=== PATIENT | male | born 1985 ===

== ENCOUNTER 2016-12-31 13:51 | Observation (INO) | payer BC, OTHER ==
--- NOTE | 2016-12-31 14:45 | C.PDOC ---
History Of Present Illness 31 y/o male presents to ED with complaints of exacerbating chronic dental pain for 3 days with associated intermittent left lower molar pain for several months but worse for the past 3 days. Patient also complaints of constant and localized left sided chest pain since 0500. Patient states tooth cracked seven months ago and tried to see Dentist today but was advised to make an appointment. Patient reports taking 26 Tylenol extra strength pills in 36 hours. Patient states he took "4 pills extra strength every 2 hours" and last dose was at 0200. Patient also reports taking Advil pm and Excedrin pm yesterday with limited relief. ACUTE EXAC CHRONIC DENTAL PAIN X 3 DAYS. W INTERMIT L LOWER MOLAR PAIN X SEV MONTHS BUT WORSE THAN USUAL X 3 DAYS. NO FEVER. PS CRACKED TOOTH SEV MONTHS AGO. TRIED TO SEE DENTIST TODAY BUT WAS ADVISED NEED AN APPOINTMENT. TOOK 26 TYLENOL EXTRA STRENGTH PILLS IN 36 HOURS. "4 PILLS EXTRA STRENGTH EVERY 2 HOURS". LAST DOSE @ 0200. TOOK ADVIL PM AND EXCEDRIN PM YEST W LIMITED RELIEF. ALSO CO L SIDED CHEST PAIN SINCE 0500. LOCALIZED CONSTANT EXAM MILD DIST ANICTERIC MOUTH +CRACKED TOOTH L LOWER 1 MOLAR W LOCAL TEND. NO ABSCESS. NO FACIAL SWELL Time Seen by Provider: 12/31/16 14:22 Chief Complaint (Nursing): Dental Pain History Per: Patient History/Exam Limitations: no limitations Onset/Duration Of Symptoms: Days Current Symptoms Are (Timing): Still Present Past Medical History Reviewed: Historical Data, Nursing Documentation, Vital Signs Vital Signs: Last Vital Signs Temp 99.2 F 12/31/16 15:48 Pulse 90 12/31/16 15:48 Resp 17 12/31/16 15:48 BP 129/91 H 12/31/16 15:48 Pulse Ox 99 12/31/16 15:56 - [facility] Procedures APPLICATION OF SPLINT (04/26/14) CLOSURE SKIN & SUBCUTANEOUS NEC (01/04/15) TETANUS TOXOID ADMINIST (01/04/15) Family History: States: No Known Family Hx - Social History Hx Tobacco Use: Yes Hx Alcohol Use: No Hx Substance Use: No - Immunization History Hx Tetanus Toxoid Vaccination: Yes (not up to date) Review Of Systems Except As Marked, All Systems Reviewed And Found Negative. Constitutional: Negative for: Fever, Chills Eyes: Negative for: Vision Change Cardiovascular: Positive for: Chest Pain Respiratory: Negative for: Cough, Shortness of Breath Gastrointestinal: Negative for: Nausea, Vomiting Skin: Negative for: Rash Physical Exam - Physical Exam Appears: Non-toxic, Other (Mild distress) Skin: Warm, Dry, No Rash, Other (Anicteric) Head: Atraumatic, Normacephalic Eye(s): bilateral: Normal Inspection Oral Mucosa: Moist Lips: Normal Appearing Teeth: No Loose, Other (cracked tooth to left lower 1st molar w/local tenderness. No abscess) Gingiva: Normal Appearing, No Swelling Throat: Normal, No Erythema Neck: Normal ROM, Supple Neurological/Psych: Oriented x3, Normal Speech, Normal Cognition ED Course And Treatment - Laboratory Results Result Diagrams: 12/31/16 15:12 12/31/16 15:12 ECG: Interpreted By Me ECG Rhythm: Sinus Rhythm ECG Interpretation: Normal Rate From EC (bpm) O2 Sat by Pulse Oximetry: 99 (RA) Pulse Ox Interpretation: Normal - Radiology CXR: Interpreted by Me CXR Interpretation: Yes: No Acute Disease Progress - Re-Evaluation Re-evaluation Note: 12/31/16 14:52 D/W [place] [facility]: RECOMMENDS ACETADOTE, LABS AND ADMISSION. 12/31/16 14:56 D/W DR Eloy NORRIS MED SLAB LIFTING ENGINEER WILL ADMIT 12/31/16 15:02 D/W DR BURNS C/F ICU: AWARE OF ER FINDINGS, REQUESTS CALLBACK W LABS FOR DISPO 12/31/16 16:26 RESULTS D/W DR BURNS, PT CLEARED FOR REG FLOOR ADMISSION EXAM [facility] - Data Reviewed Data Reviewed: Lab, Diagnostic imaging, EKG, Other ([facility]) - Critical Care Citical Care: Excluding Proc Time Critical Care Time: 90 minutes - Continuity of Care Discussed patient case with:: Patient, On-call PMD-pt unassigned Discussed pt. case with retail consultant/specialty: Pulmonary/Crit. Care, Other ([place] [facility]) Disposition Counseled Patient/Family Regarding: Studies Performed, Diagnosis - Disposition Disposition: HOSPITALIZED Disposition Time: 15:02 Condition: STABLE Forms: [facility] (Arabic) - POA Present On Arrival: None - Clinical Impression Clinical Impression: Dentalgia, Unintentional Tylenol overdose - PA / [employer] / Resident Statement MD/DO has examined the patient and agrees with the treatment plan. - Scribe Statement The provider has reviewed the documentation as recorded by the Jinnyibe Oleg Bauer All medical record entries made by the Jinnyibe were at my direction and personally dictated by me. I have reviewed the chart and agree that the record accurately reflects my personal performance of the history, physical exam, medical decision making, and the department course for this patient. I have also personally directed, reviewed, and agree with the discharge instructions and disposition. Decision To Admit - Pt Status Changed To: Hospital Disposition Of: Observation - . Bed Request Type: Regular Admitting Physician: Chad Norris Patient Diagnosis: Dentalgia, Unintentional Tylenol overdose
[2016-12-31] MEDS ORDERED: Acetylcysteine 10,890 MG in Dextrose 5% In Water 200 ML IVPB ONE ×2 (14:58→16:00)
[2016-12-31 15:18] LABS: BASO % 0.2 % (0.0-2.0); EOS # 0.1 K/uL (0.0-0.7); EOS % 0.7 % (0.0-4.0); HEMATOCRIT 48.2 % (35.0-51.0); LYMPH # 1.4 K/uL (1.0-4.3); LYMPH % 10.4 % (20.0-40.0); MEAN CELL VOLUME 86.1 fL (80.0-94.0); MEAN CORPUSCULAR HEMOGLOBIN 29.4 pg (27.0-31.0); MEAN CORPUSCULAR HGB CONC 34.2 g/dL (33.0-37.0); MEAN PLATELET VOLUME 8.4 fL (7.2-11.7); MONO # 1.1 K/uL (0.0-0.8); MONO % 8.1 % (0.0-10.0); RED CELL DISTRIBUTION WIDTH 12.7 % (11.5-14.5); WHITE BLOOD COUNT 13.8 K/uL (4.8-10.8)
[2016-12-31 15:25] LABS: CHLORIDE 100 mmol/L (98-107); POTASSIUM 4.1 mmol/L (3.6-5.2); SODIUM 141 mmol/L (132-148)
[2016-12-31 15:28] LABS: ALB/GLOB RATIO 1.2 (1.0-2.1); ALKALINE PHOSPHATASE 73 U/L (38-126); ALT/SGPT 43 U/L (21-72); AST/SGOT 28 U/L (17-59); BILIRUBIN,DIRECT 0.6 mg/dL (0.0-0.4); BILIRUBIN,TOTAL 0.6 mg/dL (0.2-1.3); BLOOD UREA NITROGEN 10 mg/dL (9-20); CALCIUM 9.3 mg/dl (8.6-10.4); CARBON DIOXIDE 25 mmol/L (22-30); GFR AFRICAN-AMERICAN > 60; GLUCOSE,RANDOM 143 mg/dL (75-110); TOTAL PROTEIN 7.9 g/dL (6.3-8.3)
--- NOTE | 2016-12-31 15:44 | RAD ---
HISTORY: CHEST PAIN; OVERDOSE COMPARISON: No prior. TECHNIQUE: Chest PA and lateral FINDINGS: LUNGS: No active pulmonary disease. PLEURA: No significant pleural effusion identified. No pneumothorax apparent. CARDIOVASCULAR: Apparent right-sided aortic arch. OSSEOUS STRUCTURES: No significant abnormalities. VISUALIZED UPPER ABDOMEN: The gastric air bubble appears be at beneath the left hemidiaphragm OTHER FINDINGS: Note made of a radiopaque density overlying the anterior chest wall in lateral projection. IMPRESSION: No acute infiltrates. Right-sided aortic arch.
[2016-12-31] MEDS ORDERED: Acetylcysteine 3,630 MG in Dextrose 5% In Water 500 ML IVPB ONE (17:29)
--- NOTE | 2016-12-31 17:43 | CP.CCUPN ---
CCU Subjective - Physician Review Events Since Last Encounter (Free Text): 12/31/16 17:43 ICU evaluation called because of the Tylenol overdose. But after the evaluation Tylenol level was normal. 31-year-old male came to the emergency room with pain over the left side of the chest, as well as left upper quadrant pain. 3 days patient was taking medications of Tylenol more frequently than usual, for his toothache. Patient did not have any symptoms of nausea, vomiting. But the currently complaining of some headache, and a left-sided chest pain, palpitation, and the left upper quadrant pain. He is not in any distress. He is otherwise comfortable. He has no other major active symptoms Past medical history: None No known drug allergy Patient is a smoker, no alcohol or substance abuse. Currently working On examination: Vital signs stable. Chest good air entry bilaterally. Low-grade fever noted, blood pressure is 130/90, saturation 99% chest good air entry regular heart sound Abdominal tenderness noted over the left upper quadrant area. No cough. Labs reviewed Mild elevation of the WBC noted Tylenol level is normal. Assessment and recommendation: 31-year-old male currently clinically stable. He does not need to be in the intensive care unit. Patient can be admitted to the medical floor, and they will be managed by the medical team. If there is any changing in condition please call ICU. Further orders and management as per PMD. CCU Objective - Vital Signs / Intake & Output Vital Signs (Last 4 hours): Vital Signs Pulse Ox 12/31/16 16:27 99 - Medications Active Medications: Active Medications Generic Name Dose Route Start Last Admin Trade Name Freq PRN Reason Stop Dose Admin Acetylcysteine 3,630 mg/ 518.15 mls @ 125 mls/hr 12/31/16 17:29 Dextrose IVPB 12/31/16 21:37 ONCE ONE
--- NOTE | 2016-12-31 18:52 | CP.PCM.HP ---
Past Patient History - Past Social History Smoking Status: Light Smoker < 10 Cigarettes Daily - PSYCHIATRIC Hx Substance Use: No - SURGICAL HISTORY Other/Comment: hernia and esophagial surgery as a baby - ANESTHESIA Hx Anesthesia: No Hx Anesthesia Reactions: No Hx Malignant Hyperthermia: No Meds Allergies/Adverse Reactions: Allergies Allergy/AdvReac Type Severity Reaction Status Date / Time acetaminophen [From Tylenol] Allergy RASH Verified 12/31/16 14:23 ibuprofen [From Motrin] Allergy RASH Verified 12/31/16 14:23 Physical Exam - Constitutional Appears: Well - Head Exam Head Exam: ATRAUMATIC, NORMAL INSPECTION, NORMOCEPHALIC - Eye Exam Eye Exam: EOMI, Normal appearance, PERRL Pupil Exam: NORMAL ACCOMODATION, PERRL - ENT Exam ENT Exam: Mucous Membranes Moist, Normal Exam - Neck Exam Neck exam: Positive for: Normal Inspection - Respiratory Exam Respiratory Exam: Decreased Breath Sounds - Cardiovascular Exam Cardiovascular Exam: REGULAR RHYTHM, +S1, +S2 - GI/Abdominal Exam GI & Abdominal Exam: Diminished Bowel Sounds, Soft - Rectal Exam Rectal Exam: Deferred Results - Vital Signs Recent Vital Signs: Last Vital Signs Temp 99 F 12/31/16 17:55 Pulse 89 12/31/16 17:55 Resp 16 12/31/16 17:55 BP 137/84 12/31/16 17:55 Pulse Ox 98 12/31/16 17:55 - Labs Result Diagrams: 12/31/16 15:12 12/31/16 15:12
[2016-12-31] MEDS ORDERED: HYDROmorphone 1 mg/ml ISec IVP PRN (20:31)
[2016-12-31] MEDS ORDERED: Acetylcysteine 10,890 MG in Dextrose 5% In Water 200 ML IVPB STA (23:16)
[2016-12-31] MEDS ORDERED: Acetylcysteine 7,260 MG in Dextrose 5% In Water 1,000 ML IVPB STA (23:25)
[2017-01-01] MEDS: HYDROmorphone 1 mg/ml ISec IVP PRN ×3 (04:40→13:45)
--- NOTE | 2017-01-01 07:24 | CP.PCM.PN ---
Subjective - Date & Time of Evaluation Date of Evaluation: 01/01/17 Time of Evaluation: 10:22 - Subjective Subjective: PGY 2 Medicine Note- Dr. Chacon's service CC: dental pain/ chest pain HPI: Pt with no PMHx presents with complaints of dental pain as well as chest pain. Pt seen and examined in no acute distress. Patient states that he cracked one of his molars several months back. He began experiencing excruciating pain on Saturday. Patient then took several pills of Tylenol progressively over the day for relief but states that his pain did not resolve. Patient is unclear of the exact number of pills. Patient states that he used to have an allergic reaction to Tylenol and ibuprofen (as a child) resulting in a rash, and thus he never took either medication for years. On Saturday however, he just wanted something that would relieve his pain. He admits to taking one Tylenol at first , without relief. Afterwards, he took several pills continuously without reading the instructions. Patient states that he is literate. He just did not read the bottle to confirm dosing because he was in such great pain. Patient admits to a intermittent and achy chest pain. The pain is relieved by pushing in the left axillary region. He denies radiation at this time. Patient states that he also had headaches as well which have been intermittent in nature. He denies nausea, vomiting, diarrhea, paresthesias , constipation, suicidal ideations, hallucinations, feelings of anxiety or depression at this time. PMHx- none PSHx- Surgery when he was born. It is unclear of the type of surgery Meds- denies Fam Hx- Admits to mild stroke with grandmother, Uncle developed kidney disease secondarily to longstanding uncontrolled HTN Allergies- Kiwi results in anaphylaxis; Acetaminophen and Ibuprofen used to result in hives as a child. He states that he did not break out into hives when he took the acetaminophen a few days ago. Social Hx- Patient admits to smoking cigarettes He smokes 1 pack every 3 days . He has been smoking for approx 16 years. He admits to marijuana use in the past. He admits to social alcohol use but not recently. ICU eval 12/31- Patient was stable at the time and there was no indication for him to need critical care monitoring Objective - Vital Signs/Intake and Output Vital Signs (last 24 hours): Temp Pulse Resp BP Pulse Ox 98.7 F 87 16 130/81 99 12/31/16 23:30 12/31/16 23:30 12/31/16 23:30 12/31/16 23:30 12/31/16 23:30 Intake and Output: 01/01/17 01/01/17 06:59 18:59 Intake Total 1800 Balance 1800 - Medications Medications: Current Medications Hydromorphone HCl (Dilaudid) 1 mg IVP Q4H PRN PRN Reason: Pain, severe (8-10) Last Admin: 01/01/17 04:40 Dose: 1 mg Acetylcysteine 7,260 mg/ (Dextrose) 1,000 mls @ 62 mls/hr IVPB STAT STA Stop: 01/01/17 15:32 Last Admin: 01/01/17 00:30 Dose: 62 mls/hr Pantoprazole Sodium (Protonix Ec Tab) 40 mg PO DAILY FRANCES Penicillin V Potassium (Penicillin Vk Tab) 500 mg PO Q6 FRANCES Last Admin: 01/01/17 05:30 Dose: 500 mg Pneumococcal Polyvalent Vaccine (Pneumovax 23 Vaccine) 0.5 ml IM .ONCE ONE Stop: 01/01/17 10:01 - Labs Labs: PT 11.7 SECONDS (9.7-12.2) 12/31/16 15:12 INR 1.0 12/31/16 15:12 APTT 33 SECONDS (21-34) 12/31/16 15:12 - Constitutional Appears: Non-toxic, No Acute Distress - Head Exam Head Exam: ATRAUMATIC, NORMAL INSPECTION, NORMOCEPHALIC - Eye Exam Eye Exam: EOMI, Normal appearance, PERRL - ENT Exam ENT Exam: Mucous Membranes Moist Additional comments: Dentition- cracked left molar - Neck Exam Neck Exam: Full ROM - Respiratory Exam Respiratory Exam: NORMAL BREATHING PATTERN. absent: Wheezes - Cardiovascular Exam Cardiovascular Exam: +S1, +S2 - GI/Abdominal Exam GI & Abdominal Exam: Soft, Normal Bowel Sounds - Extremities Exam Extremities Exam: Full ROM - Neurological Exam Neurological Exam: Alert, Awake, Oriented x3 - Psychiatric Exam Psychiatric exam: Normal Affect, Normal Mood - Skin Skin Exam: Dry, Normal Color, Warm Assessment and Plan (1) Chest pain Assessment & Plan: No prior known cardiac history Initial EKG NSR with peaked T waves F/U EKG NSR Initial troponin negative Consult to Dr. Doyle Air Tank Assembler- F/U Cont to monitor Status: Acute (2) Dentalgia Assessment & Plan: Dilaudid 1 mg Q4 PRN switched to Morphine 1 mg Q4 PRN Cont to monitor May benefit from ice pack as well. Will speak with case management regarding any dental assistance programs Status: Acute (3) Unintentional Tylenol overdose Assessment & Plan: Initial Tylenol level less than 10 Patient responsive, awake, alert, oriented Patient counseled on reading drug label instructions before using in the future Status: Acute (4) Prophylactic measure Assessment & Plan: SCDs Ambulates Protonix 40 mg PO daily Discussed with attending. All management per Dr. Chacon Status: Acute
[2017-01-01 08:40] VITALS: RESP 20
[2017-01-01] MEDS: Pantoprazole 40 mg EC Tab PO SCH (09:22)
[2017-01-01 09:42] LABS: HEMATOCRIT 45.6 % (35.0-51.0); MEAN CELL VOLUME 84.4 fL (80.0-94.0); MEAN CORPUSCULAR HEMOGLOBIN 29.5 pg (27.0-31.0); MEAN CORPUSCULAR HGB CONC 34.9 g/dL (33.0-37.0); MEAN PLATELET VOLUME 8.2 fL (7.2-11.7); RED CELL DISTRIBUTION WIDTH 12.5 % (11.5-14.5); WHITE BLOOD COUNT 8.8 K/uL (4.8-10.8)
[2017-01-01 09:48] LABS: INR 1.2
[2017-01-01 09:50] LABS: CHLORIDE 98 mmol/L (98-107)
[2017-01-01 09:51] LABS: POTASSIUM 3.8 mmol/L (3.6-5.2); SODIUM 139 mmol/L (132-148)
[2017-01-01 09:53] LABS: ALB/GLOB RATIO 1.1 (1.0-2.1); AST/SGOT 27 U/L (17-59); BILIRUBIN,DIRECT 0.5 mg/dL (0.0-0.4); BILIRUBIN,TOTAL 0.7 mg/dL (0.2-1.3); BLOOD UREA NITROGEN 8 mg/dL (9-20); CARBON DIOXIDE 29 mmol/L (22-30); GFR AFRICAN-AMERICAN > 60; TOTAL PROTEIN 7.1 g/dL (6.3-8.3)
[2017-01-01 09:54] LABS: ALKALINE PHOSPHATASE 58 U/L (38-126); ALT/SGPT 44 U/L (21-72); GLUCOSE,RANDOM 108 mg/dL (75-110)
[2017-01-01] MEDS ORDERED: Pneumococcal 23-Valent Vaccine IM ONE (10:00)
--- NOTE | 2017-01-01 15:47 | CP.PCM.PN ---
Subjective - Date & Time of Evaluation Date of Evaluation: 01/01/17 Time of Evaluation: 09:40 - Subjective Subjective: clinically same Objective - Vital Signs/Intake and Output Vital Signs (last 24 hours): Temp Pulse Resp BP Pulse Ox 98.6 F 87 20 113/78 97 01/01/17 08:38 01/01/17 08:38 01/01/17 08:38 01/01/17 08:38 01/01/17 08:38 Intake and Output: 01/01/17 01/01/17 06:59 18:59 Intake Total 1800 976 Balance 1800 976 - Medications Medications: Current Medications Morphine Sulfate (Morphine) 1 mg IV Q4 PRN PRN Reason: Pain, moderate (4-7) Pantoprazole Sodium (Protonix Ec Tab) 40 mg PO DAILY [facility] Last Admin: 01/01/17 09:22 Dose: 40 mg Penicillin V Potassium (Pen-Vee K) 500 mg PO Q6 [facility] Last Admin: 01/01/17 12:42 Dose: 500 mg - Labs Labs: 01/01/17 09:38 01/01/17 09:38 PT 13.9 SECONDS (9.7-12.2) H 01/01/17 09:38 INR 1.2 01/01/17 09:38 APTT 33 SECONDS (21-34) 12/31/16 15:12 - Constitutional Appears: Well - Head Exam Head Exam: ATRAUMATIC, NORMAL INSPECTION, NORMOCEPHALIC - Eye Exam Eye Exam: EOMI, Normal appearance, PERRL Pupil Exam: NORMAL ACCOMODATION, PERRL - ENT Exam ENT Exam: Mucous Membranes Moist, Normal Exam - Neck Exam Neck Exam: Full ROM, Normal Inspection. absent: Lymphadenopathy - Respiratory Exam Respiratory Exam: Decreased Breath Sounds - Cardiovascular Exam Cardiovascular Exam: REGULAR RHYTHM, +S1, +S2 - GI/Abdominal Exam GI & Abdominal Exam: Soft, Diminished Bowel Sounds - Rectal Exam Rectal Exam: Deferred
[2017-01-01 18:05] LABS: INR 1.2
[2017-01-01 18:06] LABS: ALB/GLOB RATIO 1.2 (1.0-2.1); BILIRUBIN,DIRECT 0.6 mg/dL (0.0-0.4); BILIRUBIN,TOTAL 0.7 mg/dL (0.2-1.3); TOTAL PROTEIN 7.1 g/dL (6.3-8.3)
[2017-01-01] MEDS: Morphine 4 MG/ML VIAL IV PRN (22:07)
[2017-01-02] MEDS: Morphine 4 MG/ML VIAL IV PRN (06:05)
[2017-01-02 06:43] LABS: BASO % 0.4 % (0.0-2.0); EOS # 0.2 K/uL (0.0-0.7); EOS % 2.1 % (0.0-4.0); HEMATOCRIT 47.3 % (35.0-51.0); LYMPH # 1.7 K/uL (1.0-4.3); LYMPH % 18.4 % (20.0-40.0); MEAN CELL VOLUME 84.8 fL (80.0-94.0); MEAN CORPUSCULAR HEMOGLOBIN 29.2 pg (27.0-31.0); MEAN CORPUSCULAR HGB CONC 34.4 g/dL (33.0-37.0); MEAN PLATELET VOLUME 8.2 fL (7.2-11.7); MONO % 11.2 % (0.0-10.0); NRBC % 0.1 % (0.0-2.0); RED CELL DISTRIBUTION WIDTH 12.7 % (11.5-14.5); WHITE BLOOD COUNT 9.2 K/uL (4.8-10.8)
[2017-01-02 06:53] LABS: ALB/GLOB RATIO 1.3 (1.0-2.1); ALKALINE PHOSPHATASE 66 U/L (38-126); ALT/SGPT 62 U/L (21-72); AST/SGOT 46 U/L (17-59); BILIRUBIN,TOTAL 0.6 mg/dL (0.2-1.3); BLOOD UREA NITROGEN 12 mg/dL (9-20); CALCIUM 9.4 mg/dl (8.6-10.4); CARBON DIOXIDE 26 mmol/L (22-30); CHLORIDE 100 mmol/L (98-107); GFR AFRICAN-AMERICAN > 60; GLUCOSE,RANDOM 93 mg/dL (75-110); MAGNESIUM 2.3 mg/dL (1.6-2.3); PHOSPHOROUS 4.3 mg/dL (2.5-4.5); POTASSIUM 4.3 mmol/L (3.6-5.2)
[2017-01-02 06:55] LABS: SODIUM 136 mmol/L (132-148)
[2017-01-02 07:40] VITALS: BP 117/76; PULSE 74; TEMP 97.8; O2SAT 98
[2017-01-02] MEDS: Pantoprazole 40 mg EC Tab PO SCH (09:58)
--- NOTE | 2017-01-02 11:44 | CARD ---
APPROVED REPORT EKG Measurement Heart [id number] <Conclusion> Normal sinus rhythm Normal ECG
--- NOTE | 2017-01-02 12:12 | PCM.PSYCH ---
Initial Psychiatric Evaluation - Initial Psychiatric Evaluation Type of Admission: Voluntary Legal Status: Capacity Chief Complaint (in patient's own words): "I'm fine" History of Present Illness and Precipitating Events: The patient is seen, chart reviewed and case discussed. Consultation was requested because of patient's Tylenol overdose. This is a 31-year-old male, common-law with 2 children aged 9 and 10. 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 The patient claims that over the weekend he was having severe toothache and took Tylenol [id number] and in 2 days he finished a whole bottle. He also took some Excedrin. He denies feeling suicidal or attempting suicide. He also denies feeling depressed lately but was anxious about his worsening toothache. He denies any life stressors. He also denies any drug or alcohol use. He is future oriented and is looking forward to resuming work tomorrow. He even asked for a letter or for his absences. Thai Masseur attempted to call his but the number and chart was wrong. Past psych history: Denies Medical history: Denies Family psych history: Denies Current Medications: Active Medications Generic Name Dose Route Start Last Admin Trade Name Freq PRN Reason Stop Dose Admin Morphine Sulfate 1 mg 01/01/17 13:48 01/02/17 06:05 Morphine IV 1 mg Q4 PRN Administration Pain, moderate (4-7) Pantoprazole Sodium 40 mg 01/01/17 10:00 01/02/17 09:58 Protonix Ec Tab PO 40 mg DAILY FRANCES Administration Penicillin V Potassium 500 mg 01/01/17 18:00 01/02/17 12:11 Pen-Vee K PO 500 mg Q6 FRANCES Administration Past Psychiatric History - Past Psychiatric History Previous Treatment History: None Pertinent Medical Hx (Current Medical&Sleep Prob, Allergies): Allergies Allergy/AdvReac Type Severity Reaction Status Date / Time acetaminophen [From Tylenol] Allergy RASH Verified 12/31/16 14:23 ibuprofen [From Motrin] Allergy RASH Verified 12/31/16 14:23 Advil Pm Caplet 6 tab PRN PRN 12/31/16 Review of Systems - Neurological Neurological: UNREMARKABLE - Psychiatric Psychiatric: Anxiety. absent: Anhedonia, Depression, Hallucinations, Homicidal Ideation, Paranoia, Suicidal Ideation Mental Status Examination - Personal Presentation Personal Presentation: Looks stated age - Affect Affect: Broad - Motor Activity Motor Activity: Calm - Reliability in Providing Information Reliability in Providing Information: Good - Speech Speech: Organized - Mood Mood: Anxious - Formal Thought Process Formal Thought Process: No Impairment - Cognitive Functions Orientation: Person, Place, Situation, Time Sensorium: Alert Attention/Concentration: Attentive Estimate of Intelligence: Average Judgement: Intact, as evidence by: Insight regarding need for hospitalization Memory: Recent intact, as evidence by: Ability to recall events of the day, Remote intact, as evidenced by: Abilit to recall sig. life events - Strength & Assets Inventory Strength & Assets Inventory: Family support, Employment history, Cooperative DSM 5 DX - DSM 5 DSM 5 Diagnosis: Adjustment disorder with anxiety - Recommended/Plan of Treatment Treatment Recommendations and Plan of Treatment: Cleared for d/c by psych No further treatment is necessary and he is also NOt interested Return to ER if needed He agreed Support given 31 min
--- NOTE | 2017-01-02 13:31 | CP.PCM.PN ---
Subjective - Date & Time of Evaluation Date of Evaluation: 01/02/17 Time of Evaluation: 13:30 - Subjective Subjective: Service for Dr. Axel Chacon Pt seen/examined at bedside. No acute distress. No events overnight. Patient says chest pain has completely resolved. His dental pain is better as well. Trops have been negative. Cardiology evaluation in progress. Slept well, eating well. No fevers, chills, vomiting, diarrhea, sob. Objective - Vital Signs/Intake and Output Vital Signs (last 24 hours): Temp Pulse Resp BP Pulse Ox 97.8 F 74 20 117/76 98 01/02/17 07:39 01/02/17 07:39 01/02/17 07:39 01/02/17 07:39 01/02/17 07:39 Intake and Output: 01/02/17 01/02/17 06:59 18:59 Intake Total 400 500 Balance 400 500 - Medications Medications: Current Medications Morphine Sulfate (Morphine) 1 mg IV Q4 PRN PRN Reason: Pain, moderate (4-7) Last Admin: 01/02/17 06:05 Dose: 1 mg Pantoprazole Sodium (Protonix Ec Tab) 40 mg PO DAILY [facility] Last Admin: 01/02/17 09:58 Dose: 40 mg Penicillin V Potassium (Pen-Vee K) 500 mg PO Q6 [facility] Last Admin: 01/02/17 12:11 Dose: 500 mg - Labs Labs: 01/02/17 06:30 01/02/17 06:30 PT 13.5 SECONDS (9.7-12.2) H 01/01/17 17:06 INR 1.2 01/01/17 17:06 APTT 31 SECONDS (21-34) 01/01/17 17:06 - Constitutional Appears: Non-toxic, No Acute Distress - Head Exam Head Exam: ATRAUMATIC, NORMAL INSPECTION, NORMOCEPHALIC - Eye Exam Eye Exam: EOMI - ENT Exam ENT Exam: Mucous Membranes Moist - Neck Exam Neck Exam: Full ROM, Normal Inspection - Respiratory Exam Respiratory Exam: NORMAL BREATHING PATTERN. absent: Respiratory Distress - Cardiovascular Exam Cardiovascular Exam: +S1, +S2 - GI/Abdominal Exam GI & Abdominal Exam: Soft, Normal Bowel Sounds. absent: Tenderness - Extremities Exam Extremities Exam: Full ROM - Neurological Exam Neurological Exam: Alert, Awake, CN II-XII Intact - Psychiatric Exam Psychiatric exam: Normal Affect, Normal Mood - Skin Skin Exam: Dry, Intact, Normal Color, Warm Assessment and Plan - Assessment and Plan (Free Text) Assessment: This is a 31 year old male with no past medical history presenting with chest pain, current smoker, r/o ACS (1) Chest pain No prior known cardiac history Initial EKG NSR with peaked T waves repeat ekg shows normal sinus rhythm Initial troponin negative Consult to Dr. Doyle Metallurgist Process- F/U Cont to monitor (2) Dentalgia Dilaudid 1 mg Q4 PRN switched to Morphine 1 mg Q4 PRN Cont to monitor May benefit from ice pack as well. Will speak with case management regarding any dental assistance programs (3) Unintentional Tylenol overdose Initial Tylenol level less than 10 Patient responsive, awake, alert, oriented Patient counseled on reading drug label instructions before using in the future not warranted for icu admission (4) GI/DVT ppx SCDs Ambulates Protonix 40 mg PO daily Discussed with attending. All management per Dr. Chacon
--- NOTE | 2017-01-02 16:02 | CP.PCM.CON ---
History of Present Illness - History of Present Illness History of Present Illness: 31 y/o with L. jaw pain referred to chest Patient had L. jaw/tooth layla and took tylenol for a few days. Subsequent after 1-2 days felt throbbing sensation in left chest on and off without SOB, palpitation, fevers, chills, N/V or other GI/ sx's. PMHX: None PSHX: None FAMHX: no SCD or premature CAD in immediate family SOCHX: Smoker, no ETOH or drugs Allergies: no med allergies ROS: all 12 systems negative except for that in HPI Review of Systems - Review of Systems All systems: reviewed and no additional remarkable complaints except Past Patient History - Past Social History Smoking Status: Light Smoker < 10 Cigarettes Daily - MUSCULOSKELETAL/RHEUMATOLOGICAL Hx Falls: No - PSYCHIATRIC Hx Substance Use: No - SURGICAL HISTORY Other/Comment: hernia and esophagial surgery as a baby - ANESTHESIA Hx Anesthesia: No Hx Anesthesia Reactions: No Hx Malignant Hyperthermia: No Has any member of the family had a problem w/ anesthesia?: No Meds Home Medications: Home Medication List Medication Instructions Recorded Confirmed Type Amoxicillin/Clavulanate [Augmentin 1 tab PO BID #10 tab 01/02/17 Rx 875 MG-125 MG] Allergies/Adverse Reactions: Allergies Allergy/AdvReac Type Severity Reaction Status Date / Time acetaminophen [From Tylenol] Allergy RASH Verified 12/31/16 14:23 ibuprofen [From Motrin] Allergy RASH Verified 12/31/16 14:23 - Medications Medications: Current Medications Morphine Sulfate (Morphine) 1 mg IV Q4 PRN PRN Reason: Pain, moderate (4-7) Last Admin: 01/02/17 06:05 Dose: 1 mg Pantoprazole Sodium (Protonix Ec Tab) 40 mg PO DAILY [facility] Last Admin: 01/02/17 09:58 Dose: 40 mg Penicillin V Potassium (Pen-Vee K) 500 mg PO Q6 [facility] Last Admin: 01/02/17 12:11 Dose: 500 mg Physical Exam - Constitutional Appears: Well, Non-toxic, No Acute Distress - Head Exam Head Exam: ATRAUMATIC, NORMAL INSPECTION, NORMOCEPHALIC - Eye Exam Eye Exam: EOMI, Normal appearance, PERRL Pupil Exam: NORMAL ACCOMODATION, PERRL - ENT Exam ENT Exam: Normal Exam - Neck Exam Neck exam: Positive for: Normal Inspection - Respiratory Exam Respiratory Exam: Clear to Auscultation Bilateral, NORMAL BREATHING PATTERN - Cardiovascular Exam Cardiovascular Exam: REGULAR RHYTHM, +S1, +S2. absent: +S4, Systolic Murmur - GI/Abdominal Exam GI & Abdominal Exam: Normal Bowel Sounds, Soft. absent: Tenderness - Extremities Exam Extremities exam: Positive for: normal inspection. Negative for: calf tenderness - Neurological Exam Neurological exam: Alert, CN II-XII Intact, Normal Gait, Oriented x3 - Psychiatric Exam Psychiatric exam: Normal Affect, Normal Mood - Skin Skin Exam: Normal Color, Warm Results - Vital Signs Recent Vital Signs: Last Vital Signs Temp 97.8 F 01/02/17 07:39 Pulse 74 01/02/17 07:39 Resp 20 01/02/17 07:39 BP 117/76 01/02/17 07:39 Pulse Ox 98 01/02/17 07:39 - Labs Result Diagrams: 01/02/17 06:30 01/02/17 06:30 Labs: Laboratory Results - last 24 hr 01/01/17 01/01/17 01/02/17 17:06 17:06 06:30 WBC 9.2 RBC 5.57 Hgb 16.3 Hct 47.3 MCV 84.8 MCH 29.2 MCHC 34.4 RDW 12.7 Plt Count 356 MPV 8.2 Neut % (Auto) 67.9 Lymph % (Auto) 18.4 L [place] % (Auto) 11.2 H Eos % (Auto) 2.1 Baso % (Auto) 0.4 Neut # 6.2 Lymph # 1.7 [place] # 1.0 H Eos # 0.2 Baso # 0.0 PT 13.5 H INR 1.2 APTT 31 Sodium Potassium Chloride Carbon Dioxide Anion Gap BUN Creatinine Est GFR ( Amer) Est GFR (Non-Af Amer) Random Glucose Calcium Phosphorus Magnesium Total Bilirubin 0.7 Direct Bilirubin 0.6 H AST 49 ALT 53 Alkaline Phosphatase 99 Total Protein 7.1 Albumin 3.8 Globulin 3.3 Albumin/Globulin Ratio 1.2 01/02/17 06:30 WBC RBC Hgb Hct MCV MCH MCHC RDW Plt Count MPV Neut % (Auto) Lymph % (Auto) [place] % (Auto) Eos % (Auto) Baso % (Auto) Neut # Lymph # [place] # Eos # Baso # PT INR APTT Sodium 136 Potassium 4.3 Chloride 100 Carbon Dioxide 26 Anion Gap 14 BUN 12 Creatinine 0.6 L Est GFR ( Amer) > 60 Est GFR (Non-Af Amer) > 60 Random Glucose 93 Calcium 9.4 Phosphorus 4.3 Magnesium 2.3 Total Bilirubin 0.6 Direct Bilirubin AST 46 ALT 62 Alkaline Phosphatase 66 Total Protein 7.0 Albumin 4.0 Globulin 3.0 Albumin/Globulin Ratio 1.3 - EKG Data EKG Interpreted by: Myself EKG shows normal: Sinus rhythm Rate: Normal - Imaging and Cardiology Chest x-ray Status: Image reviewed by me (No effusion or infiltrate, R. sided aortic arch) Assessment & Plan - Assessment and Plan (Free Text) Assessment: Atypical CP Normal EKG Normal cardiac exam Normal CXRAY Normal HR and BP initial leukocytosis resolved Normal creat No suspicion for ACS DX: non-cardiac CP likely musculoskeletal Smoking cessation advised Low cholesterol, heart healthy diet F/U with dentist for L. jaw pain, ABX as ordered. Ok to d/c from cardiac.
--- NOTE | 2017-01-11 19:01 | CARD ---
APPROVED REPORT EKG Measurement Heart [id number] <Conclusion> Normal sinus rhythm Normal ECG
== END 2017-01-02 16:51 | disposition home or self-care (01) ==
LOC: C.ER 13:51 → C.9E 16:27 → C.3T 17:48
PROVIDERS: ADMIT Internal Medicine Nephrology; ATTEND Internal Medicine Nephrology
DX: T39.1X1A Poisoning by 4-Aminophenol derivatives, accidental (unintentional), initial encounter (principal); F43.22 Adjustment disorder with anxiety; F17.210 Nicotine dependence, cigarettes, uncomplicated; K03.81 Cracked tooth; R07.89 Other chest pain; D72.829 Elevated white blood cell count, unspecified
CPT/HCPCS: 36415; 71020; 80048; 80053; 80076; 80324; 80329; 80345; 80346; 80349; 80353; 80358; 80361; 82248; 83735; 83992; 84100; 84484; 85025; 85027; 85610; 85730; 93005; 99285; G0378; J0132; J1170; J2270; J7060

== ENCOUNTER 2017-05-18 16:17 | Emergency (ER) | payer SELFPAY ==
[2017-05-18 16:28] VITALS: BP 123/74; PULSE 79; RESP 18; TEMP 98.3; O2SAT 98
== END 2017-05-18 17:00 | disposition left against medical advice (07) ==
LOC: C.ER 16:17
DX: Z02.89 Encounter for other administrative examinations (principal); F10.10 Alcohol abuse, uncomplicated

== ENCOUNTER 2018-07-06 16:01 | Emergency (ER) | payer SELFPAY ==
[2018-07-06 16:08] VITALS: BMI 20.9
[2018-07-06 16:10] VITALS: BP 131/84; PULSE 81; RESP 18; TEMP 98.7; O2SAT 99
[2018-07-06] MEDS ORDERED: Lidocaine 5% Patch TD STA (16:27)
--- NOTE | 2018-07-06 16:35 | C.PDOC ---
History Of Present Illness 32 y/o male comes in to ED complaining of right-sided mid back pain and bilateral knee pain. Patient states this pain is chronic and hes had it for a few years now, but the pain has worsened in the last few days. Patient reports he typically doesnt take any medications for the pain and that he is allergic to tylenol and ibuprofen. Patient denies cough, fever, SOB, chest pain, abdominal pain, falls or other injuries. Time Seen by Provider: 07/06/18 16:11 Chief Complaint (Nursing): Back Pain History Per: Patient History/Exam Limitations: no limitations Onset/Duration Of Symptoms: Days Current Symptoms Are (Timing): Still Present Past Medical History Reviewed: Historical Data, Nursing Documentation, Vital Signs Vital Signs: Last Vital Signs Temp 98.7 F 07/06/18 16:08 Pulse 81 07/06/18 16:08 Resp 18 07/06/18 16:08 BP 131/84 07/06/18 16:08 Pulse Ox 99 07/06/18 16:08 - Medical History PMH: Back Problems - [facility] Procedures APPLICATION OF SPLINT (04/26/14) CLOSURE SKIN & SUBCUTANEOUS NEC (01/04/15) TETANUS TOXOID ADMINIST (01/04/15) Family History: States: No Known Family Hx - Social History Hx Tobacco Use: Yes Hx Alcohol Use: Yes Hx Substance Use: No - Immunization History Hx Tetanus Toxoid Vaccination: No (not up to date) Hx Influenza Vaccination: No Hx Pneumococcal Vaccination: No Review Of Systems Constitutional: Negative for: Fever, Chills Respiratory: Negative for: Cough, Shortness of Breath Gastrointestinal: Negative for: Nausea, Vomiting, Abdominal Pain Musculoskeletal: Positive for: Back Pain (right-sided mid back pain), Other (bilateral knee pain). Negative for: Neck Pain Physical Exam - Physical Exam Appears: Non-toxic, Other (Mild discomfort) Skin: Warm, Dry, No Rash Head: Atraumatic, Normacephalic Eye(s): bilateral: Normal Inspection Oral Mucosa: Moist Neck: Supple Cardiovascular: Rhythm Regular, No Murmur Respiratory: Normal Breath Sounds, No Rales, No Rhonchi, No Wheezing Gastrointestinal/Abdominal: Soft, No Tenderness Back: Other (right-sided thoracic tenderness to palpation, paraspinal around T10) Extremity: Tenderness (mild diffuse tenderness of knees), No Calf Tenderness, Other (no swelling or deformity of the knee) ED Course And Treatment O2 Sat by Pulse Oximetry: 99 (RA) Pulse Ox Interpretation: Normal Progress Note: Patient given lidoderm patch and flexeril. Will be discharged home. Disposition Counseled Patient/Family Regarding: Diagnosis, Need For Followup, Rx Given - Disposition Referrals: [facility] [Outside] Disposition: HOME/ ROUTINE Disposition Time: 16:50 Condition: STABLE Additional Instructions: FOLLOW UP WITH YOUR DOCTOR OR CLINIC IN 1-2 DAYS USE MEDICATIONS NEEDED RETURN TO ER IF SYMPTOMS WORSEN Prescriptions: Cyclobenzaprine [Flexeril] 10 mg PO BID PRN #15 tab PRN Reason: Muscle Spasm Lidocaine 5% [Lidoderm] 1 patch TOP DAILY PRN #10 patch PRN Reason: pain Instructions: Upper Back Pain (DC) Forms: [employer] (Malay) Print Language: THAI - Clinical Impression Clinical Impression: Back pain - Scribe Statement The provider has reviewed the documentation as recorded by the Demetri Rivas Provider Attestation: All medical record entries made by the Demetri were at my direction and personally dictated by me. I have reviewed the chart and agree that the record accurately reflects my personal performance of the history, physical exam, medical decision making, and the department course for this patient. I have also personally directed, reviewed, and agree with the discharge instructions and disposition.
[2018-07-06] MEDS ORDERED: Lidocaine 5% Patch TD ONE (16:45)
== END 2018-07-06 17:11 | disposition home or self-care (01) ==
LOC: C.ER 16:01
DX: M54.9 Dorsalgia, unspecified (principal); Z72.0 Tobacco use

== ENCOUNTER 2018-07-17 16:03 | Emergency (ER) | payer MEDICAID, OTHER | END 2018-07-17 18:32 | disposition home or self-care (01) | LOC: C.ER 16:03 ==

== ENCOUNTER 2018-07-19 11:11 | Emergency (ER) | payer MEDICAID, OTHER ==
[2018-07-19 11:11] VITALS: BMI 20.9
[2018-07-19 11:35] VITALS: BP 117/61; PULSE 78; RESP 16; TEMP 98.8; O2SAT 98
--- NOTE | 2018-07-19 11:47 | C.PDOC ---
History Of Present Illness 32 y/o male presents to ED for a wound check. Patient was here 2 days ago after avulsion of his left thumb. He denies any drainage, fever, chills, paresthesia, or weakness of the thumb Time Seen by Provider: 07/19/18 11:44 Chief Complaint (Nursing): Wound Check History Per: Patient History/Exam Limitations: no limitations Onset/Duration Of Symptoms: Days Ago Current Symptoms Are (Timing): Still Present Past Medical History Reviewed: Historical Data, Nursing Documentation, Vital Signs Vital Signs: Last Vital Signs Temp 98.8 F 07/19/18 11:22 Pulse 78 07/19/18 11:22 Resp 16 07/19/18 11:22 BP 117/61 07/19/18 11:22 Pulse Ox 98 07/19/18 11:22 - Medical History PMH: Back Problems - [facility] Procedures APPLICATION OF SPLINT (04/26/14) CLOSURE SKIN & SUBCUTANEOUS NEC (01/04/15) TETANUS TOXOID ADMINIST (01/04/15) Family History: States: No Known Family Hx - Social History Hx Tobacco Use: Yes Hx Alcohol Use: Yes Hx Substance Use: No - Immunization History Hx Tetanus Toxoid Vaccination: No (not up to date) Hx Influenza Vaccination: No Hx Pneumococcal Vaccination: No Review Of Systems Constitutional: Negative for: Fever, Chills Respiratory: Negative for: Shortness of Breath Musculoskeletal: Positive for: Other (Avulsion of left thumb) Neurological: Positive for: Other (paresthesia). Negative for: Weakness Physical Exam - Physical Exam Appears: Well, Non-toxic, No Acute Distress Skin: Warm, Dry Head: Atraumatic, Normacephalic Extremity: Normal ROM, Tenderness, Capillary Refill (less than 2 seconds), Other (has a clot formation at the tip of the left thumb, no signs of infection, no erythema, no discolor or drainage) Pulses: Left Radial: Normal, Right Radial: Normal Neurological/Psych: Oriented x3, Normal Speech, Normal Cognition, Normal Motor, Normal Sensation ED Course And Treatment O2 Sat by Pulse Oximetry: 98 (RA) Pulse Ox Interpretation: Normal Medical Decision Making Medical Decision Making: Dressing replaced with xeroform gauze. Recommended cut resistant gloves while handling a knife Patient is to follow up with Dr. Bar and return if there are any signs of infection. Patient is to continue tramadol for the pain. Patient verbalizes understanding and is in agreement with plan. Patient is stable for discharge. Disposition Counseled Patient/Family Regarding: Diagnosis, Need For Followup - Disposition Referrals: Breanne Alvarez MD [Staff Provider] - [facility] [Outside] Disposition: HOME/ ROUTINE Disposition Time: 11:45 Condition: STABLE Additional Instructions: Please Follow up wtih Dr. Bar for further management of your wound Return to ED for any signs of infection Instructions: Wound Care (DC) Forms: [employer] (Nigerian), Work Excuse - Clinical Impression Clinical Impression: Laceration of thumb - PA / DIET THERAPIST / Resident Statement MD/DO has reviewed & agrees with the documentation as recorded. - Scribe Statement The provider has reviewed the documentation as recorded by the Scribe Hellen Rivas All medical record entries made by the Scribe were at my direction and pers onally dictated by me. I have reviewed the chart and agree that the record accurately reflects my personal performance of the history, physical exam, medical decision making, and the department course for this patient. I have also personally directed, reviewed, and agree with the discharge instructions and disposition.
== END 2018-07-19 11:49 | disposition home or self-care (01) ==
LOC: C.ER 11:11
DX: S61.012A Laceration without foreign body of left thumb without damage to nail, initial encounter (principal); X58.XXXA Exposure to other specified factors, initial encounter